=== PATIENT | male | born 2000 | race Caucasian/White ===

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

== ENCOUNTER 2020-04-08 18:51 | Emergency (ER) | payer BC, OTHER ==
[~2020-04-08] VITALS: Ht 182.9 cm; Wt 99.1 kg
[2020-04-08 19:28] VITALS: BP 128/66
[2020-04-08 20:29] LABS: BASOPHILS % (AUTO) 0.5 % (0-1); EOSINOPHILS % (AUTO) 0.5 % (0-6); HEMATOCRIT 45.2 % (42.0-52.0); HEMOGLOBIN 15.4 g/dl (14.0-17.9); LYMPHOCYTES # (AUTO) 2.9 X10'3 (1.1-4.8); MEAN CORPUSCULAR HGB CONC 34.1 g/dL (33.0-36.5); MEAN CORPUSCULAR VOLUME 85.1 FL (78-98); MEAN PLATELET VOLUME 7.6 FL (7.4-10.4); MONOCYTES # (AUTO) 0.4 X10'3 (0-0.9); MONOCYTES % (AUTO) 4.6 % (2-12); NEUTROPHILS # (AUTO) 5.1 X10'3 (1.8-7.7); NEUTROPHILS % (AUTO) 60.4 % (42-75); PLATELET COUNT 255 X10'3 (140-440); RED BLOOD COUNT 5.31 X10'6 (4.70-6.10); RED CELL DISTRIBUTION WIDTH 13.1 % (11.5-14.5); WHITE BLOOD COUNT 8.5 X10'3 (4.5-11.0)
[2020-04-08 20:44] LABS: ALANINE AMINOTRANSFERASE 50 U/L (12-78); ALBUMIN 4.4 G/DL (3.4-5.0); ALBUMIN/GLOBULIN RATIO 1.2 (1.1-1.5); ALKALINE PHOSPHATASE 140 IU/L (20-180); AMYLASE 43 U/L (25-115); ANION GAP 9 (8-16); ASPARTATE AMINO TRANSFERASE 46 U/L (10-37); BILIRUBIN,TOTAL 0.6 MG/DL (0.1-1.0); BLOOD UREA NITROGEN 24 MG/DL (7-18); BUN/CREATININE RATIO 22.9 (5.4-32.0); CALCIUM 9.4 MG/DL (8.5-10.1); CHLORIDE 103 MMOL/L (99-107); CREATININE 1.05 MG/DL (0.60-1.10); GLUCOSE 91 MG/DL (70-104); LIPASE 54 U/L (73-393); POTASSIUM 3.8 MMOL/L (3.5-5.1); SODIUM 138 MMOL/L (135-145); TOTAL CARBON DIOXIDE 25.7 MMOL/L (24-32); eGFR > 90 ML/MIN
== END 2020-04-08 21:19 | disposition home or self-care (01) ==
LOC: ER 18:52
DX: R04.0 Epistaxis (principal); R10.30 Lower abdominal pain, unspecified; R42 Dizziness and giddiness
CPT/HCPCS: 36415; 80053; 82150; 83690; 85025; 99283

== ENCOUNTER 2020-07-08 08:34 | Outpatient (CLI) | payer BC | END 2020-07-08 23:59 | disposition home or self-care (01) | LOC: RAD 08:34 | PROVIDERS: ATTEND Family Medicine | DX: N50.811 Right testicular pain (principal); R06.02 Shortness of breath | CPT/HCPCS: 71046; 76870; 93976 ==

== ENCOUNTER 2020-11-11 13:45 | Emergency (ER) | payer BC ==
[~2020-11-11] VITALS: Ht 180.3 cm; Wt 93.2 kg
[2020-11-11 15:15] VITALS: BP 120/64
[2020-11-11] MEDS ORDERED: BENZ-16 PO (15:43)
[2020-11-11] MEDS ORDERED: ALBU8HFA PO (15:43)
== END 2020-11-11 15:54 | disposition home or self-care (01) ==
LOC: ER 13:45
DX: B34.9 Viral infection, unspecified (principal); Z20.822 Contact with and (suspected) exposure to COVID-19; R00.2 Palpitations; R05 Cough; R50.9 Fever, unspecified; Z79.899 Other long term (current) drug therapy
CPT/HCPCS: 36415; 71045; 93005; 99285; U0003; U0005

== ENCOUNTER 2020-11-25 08:56 | Outpatient (CLI) | payer BC ==
[~2020-11-25 08:56] MED LIST: ALBU8HFA PO
== END 2020-11-25 23:59 | disposition home or self-care (01) ==
LOC: CARD DIAG 08:56
PROVIDERS: ATTEND Family Medicine
DX: I49.8 Other specified cardiac arrhythmias (principal)
CPT/HCPCS: 93306

== ENCOUNTER 2021-02-22 14:45 | Emergency (ER) | payer BC ==
[~2021-02-22] VITALS: Ht 180.3 cm; Wt 92.0 kg
[2021-02-22] MEDS ORDERED: TETanus/Pertussis (Acell)/Diphther VAC/PF (Tdap-Adult) 0.5ml syringe IMVAC ONE (16:05)
[2021-02-22 18:10] VITALS: BP 113/57
== END 2021-02-22 18:12 | disposition home or self-care (01) ==
LOC: ER 14:46
DX: S06.0X0A Concussion without loss of consciousness, initial encounter (principal); V00.311A Fall from snowboard, initial encounter; Y93.23 Activity, snow (alpine) (downhill) skiing, snowboarding, sledding, tobogganing and snow tubing; Y92.89 Other specified places as the place of occurrence of the external cause; Y99.9 Unspecified external cause status
CPT/HCPCS: 70450; 90471; 90715; 99284

== ENCOUNTER 2021-04-24 07:50 | Outpatient (CLI) | payer BC ==
[2021-04-24 08:30] LABS: CLARITY,URINE CLEAR (Clear); COLOR,URINE YELLOW (Yellow); GLUCOSE, URINE NEGATIVE (Neg); KETONES,URINE NEGATIVE (Neg); LEUKOCYTE ESTERASE ,URINE NEGATIVE (Neg); NITRITES, URINE NEGATIVE (Neg); OCCULT BLOOD,URINE NEGATIVE (Neg); PROTEIN,URINE NEGATIVE (Neg); UA COLLECTION TYPE CLN CATCH MIDSTREAM; UROBILINOGEN,URINE 0.2 E.U/dL (0.2-1.0)
[2021-04-24 08:31] LABS: BASOPHILS % (AUTO) 0.4 % (0-1); EOSINOPHILS # (AUTO) 0.1 X10'3 (0-0.9); HEMATOCRIT 46.2 % (42.0-52.0); HEMOGLOBIN 15.7 g/dl (14.0-17.9); LYMPHOCYTES # (AUTO) 2.9 X10'3 (1.1-4.8); LYMPHOCYTES % (AUTO) 43.3 % (21-51); MEAN CORPUSCULAR HEMOGLOBIN 29.7 PG (27.0-31.0); MEAN CORPUSCULAR HGB CONC 34.1 g/dL (33.0-36.5); MEAN CORPUSCULAR VOLUME 87.2 FL (78-98); MONOCYTES # (AUTO) 0.5 X10'3 (0-0.9); MONOCYTES % (AUTO) 7.1 % (2-12); NEUTROPHILS # (AUTO) 3.1 X10'3 (1.8-7.7); NEUTROPHILS % (AUTO) 47.2 % (42-75); PLATELET COUNT 260 X10'3 (140-440); WHITE BLOOD COUNT 6.6 X10'3 (4.5-11.0)
[2021-04-24 10:18] LABS: ALANINE AMINOTRANSFERASE 42 U/L (12-78); ALBUMIN 4.3 G/DL (3.4-5.0); ALBUMIN/GLOBULIN RATIO 1.2 (1.1-1.5); ALKALINE PHOSPHATASE 108 IU/L (20-180); ANION GAP 11 (8-16); ASPARTATE AMINO TRANSFERASE 28 U/L (10-37); BILIRUBIN,TOTAL 0.7 MG/DL (0.1-1.0); BLOOD UREA NITROGEN 22 MG/DL (7-18); BUN/CREATININE RATIO 19.5 (5.4-32.0); CALCIUM 9.1 MG/DL (8.5-10.1); CHLORIDE 104 MMOL/L (99-107); CHOL/HDL RATIO 2.1 (0.00-4.99); CHOLESTEROL 143 MG/DL (0-200); CREATININE 1.13 MG/DL (0.60-1.10); GLUCOSE 91 MG/DL (70-104); HDL CHOLESTEROL 67 MG/DL (35-60); LDL CHOLESTEROL 65 MG/DL (50-100); POTASSIUM 3.9 MMOL/L (3.5-5.1); SODIUM 143 MMOL/L (135-145); TOTAL CARBON DIOXIDE 28.5 MMOL/L (24-32); TOTAL PROTEIN 7.9 G/DL (6.4-8.2); TRIGLYCERIDES 48 MG/DL (20-135); eGFR 83 ML/MIN
[2021-04-29 12:15] LABS: TESTOSTERONE, FREE, DIRECT 10.2 pg/mL (9.3-26.5)
== END 2021-04-24 23:59 | disposition home or self-care (01) ==
LOC: LAB 07:50
PROVIDERS: ATTEND Family Medicine
DX: D64.9 Anemia, unspecified (principal); R53.83 Other fatigue; E07.9 Disorder of thyroid, unspecified; E78.00 Pure hypercholesterolemia, unspecified; R79.89 Other specified abnormal findings of blood chemistry; N30.90 Cystitis, unspecified without hematuria
CPT/HCPCS: 36415; 80053; 80061; 81003; 84402; 84403; 84439; 84443; 85025

== ENCOUNTER 2021-12-08 13:48 | Emergency (ER) | payer BC ==
[~2021-12-08] VITALS: Ht 182.9 cm; Wt 90.9 kg
[2021-12-08 13:56] VITALS: BP 132/63
[2021-12-08 14:26] LABS: BASOPHILS % (AUTO) 0.4 % (0-1); EOSINOPHILS # (AUTO) 0.1 X10'3 (0-0.9); EOSINOPHILS % (AUTO) 1.4 % (0-6); HEMATOCRIT 44.6 % (42.0-52.0); HEMOGLOBIN 15.6 g/dl (14.0-17.9); LYMPHOCYTES # (AUTO) 2.5 X10'3 (1.1-4.8); LYMPHOCYTES % (AUTO) 36.9 % (21-51); MEAN CORPUSCULAR HEMOGLOBIN 29.4 PG (27.0-31.0); MEAN CORPUSCULAR VOLUME 84.1 FL (78-98); MEAN PLATELET VOLUME 7.4 FL (7.4-10.4); MONOCYTES # (AUTO) 0.3 X10'3 (0-0.9); MONOCYTES % (AUTO) 5.1 % (2-12); NEUTROPHILS # (AUTO) 3.9 X10'3 (1.8-7.7); NEUTROPHILS % (AUTO) 56.2 % (42-75); PLATELET COUNT 238 X10'3 (140-440); RED CELL DISTRIBUTION WIDTH 12.8 % (11.5-14.5); WHITE BLOOD COUNT 6.9 X10'3 (4.5-11.0)
[2021-12-08 14:47] LABS: ALANINE AMINOTRANSFERASE 39 U/L (12-78); ALBUMIN 4.4 G/DL (3.4-5.0); ALBUMIN/GLOBULIN RATIO 1.1 (1.1-1.5); ALKALINE PHOSPHATASE 92 IU/L (46-116); ANION GAP 10 (8-16); ASPARTATE AMINO TRANSFERASE 33 U/L (10-37); BILIRUBIN,TOTAL 0.7 MG/DL (0.1-1.0); BLOOD UREA NITROGEN 24 MG/DL (7-18); BUN/CREATININE RATIO 22.4 (5.4-32.0); CALCIUM 9.4 MG/DL (8.5-10.1); CHLORIDE 101 MMOL/L (99-107); CREATININE 1.07 MG/DL (0.60-1.10); GLUCOSE 116 MG/DL (70-104); POTASSIUM 3.4 MMOL/L (3.5-5.1); SODIUM 138 MMOL/L (135-145); TOTAL CARBON DIOXIDE 27.3 MMOL/L (24-32); TOTAL PROTEIN 8.4 G/DL (6.4-8.2); eGFR 87 ML/MIN
== END 2021-12-08 18:50 | disposition home or self-care (01) ==
LOC: ER 13:48
DX: R00.2 Palpitations (principal); R07.89 Other chest pain; R42 Dizziness and giddiness
CPT/HCPCS: 36415; 80053; 83880; 84484; 85025; 93005; 99284

== ENCOUNTER 2022-05-20 15:44 | Emergency (ER) | payer BC ==
[~2022-05-20] VITALS: Ht 180.3 cm; Wt 97.0 kg
[2022-05-20 16:09] LABS: CLARITY,URINE CLEAR (Clear); COLOR,URINE STRAW (Yellow); GLUCOSE, URINE NEGATIVE (Neg); KETONES,URINE NEGATIVE (Neg); LEUKOCYTE ESTERASE ,URINE NEGATIVE (Neg); NITRITES, URINE NEGATIVE (Neg); OCCULT BLOOD,URINE NEGATIVE (Neg); PROTEIN,URINE NEGATIVE (Neg); UROBILINOGEN,URINE 0.2 E.U/dL (0.2-1.0)
[2022-05-20 16:15] LABS: UA COLLECTION TYPE CLN CATCH MIDSTREAM
[2022-05-20 16:32] LABS: BASOPHILS % (AUTO) 0.3 % (0-1); EOSINOPHILS # (AUTO) 0.1 X10'3 (0-0.9); EOSINOPHILS % (AUTO) 0.9 % (0-6); HEMATOCRIT 46.8 % (42.0-52.0); HEMOGLOBIN 15.8 g/dl (14.0-17.9); LYMPHOCYTES # (AUTO) 2.9 X10'3 (1.1-4.8); LYMPHOCYTES % (AUTO) 43.8 % (21-51); MEAN CORPUSCULAR HEMOGLOBIN 29.6 PG (27.0-31.0); MEAN CORPUSCULAR HGB CONC 33.8 g/dL (33.0-36.5); MEAN CORPUSCULAR VOLUME 87.5 FL (78-98); MEAN PLATELET VOLUME 7.3 FL (7.4-10.4); MONOCYTES # (AUTO) 0.4 X10'3 (0-0.9); MONOCYTES % (AUTO) 6.1 % (2-12); NEUTROPHILS # (AUTO) 3.2 X10'3 (1.8-7.7); NEUTROPHILS % (AUTO) 48.9 % (42-75); PLATELET COUNT 245 X10'3 (140-440); RED BLOOD COUNT 5.34 X10'6 (4.70-6.10); RED CELL DISTRIBUTION WIDTH 12.9 % (11.5-14.5); WHITE BLOOD COUNT 6.5 X10'3 (4.5-11.0)
[2022-05-20 16:45] LABS: ALANINE AMINOTRANSFERASE 37 U/L (12-78); ALBUMIN 4.1 G/DL (3.4-5.0); ALBUMIN/GLOBULIN RATIO 1.1 (1.1-1.5); ALKALINE PHOSPHATASE 89 IU/L (46-116); ANION GAP 10 (8-16); ASPARTATE AMINO TRANSFERASE 36 U/L (10-37); BILIRUBIN,TOTAL 0.6 MG/DL (0.1-1.0); BLOOD UREA NITROGEN 25 MG/DL (7-18); BUN/CREATININE RATIO 20.8 (10.0-20.0); CALCIUM 9.1 MG/DL (8.5-10.1); CHLORIDE 102 MMOL/L (99-107); GLUCOSE 101 MG/DL (70-104); LIPASE 52 U/L (73-393); POTASSIUM 3.7 MMOL/L (3.5-5.1); SODIUM 139 MMOL/L (135-145); TOTAL CARBON DIOXIDE 27.5 MMOL/L (24-32); TOTAL PROTEIN 7.7 G/DL (6.4-8.2); eGFR 76 ML/MIN
[2022-05-20 16:50] VITALS: BP 137/77
[2022-05-20] MEDS ORDERED: LIDOcaine Viscous 15ml cup MM ONE (17:25)
[2022-05-20] MEDS ORDERED: pantoprazole 40mg Tablet.DR PO ONE (17:25)
[2022-05-20] MEDS ORDERED: ondansetron 4mg rapidly disintigrating tab PO ONE (17:25)
[2022-05-20] MEDS ORDERED: ibuprofen tablet 400 MG TABLET PO ONE (17:25)
[2022-05-20] MEDS ORDERED: normal saline 1000ml 1,000 ML IV ONE (17:25)
[2022-05-20] MEDS ORDERED: FAMO-128 PO (19:02)
== END 2022-05-20 19:31 | disposition home or self-care (01) ==
LOC: ER 15:44
DX: K29.70 Gastritis, unspecified, without bleeding (principal); Z79.899 Other long term (current) drug therapy
CPT/HCPCS: 36415; 80053; 81003; 83690; 85025; 85610; 86885; 86900; 86901; 96360; 99284; J7030

== ENCOUNTER 2022-09-08 08:24 | Emergency (ER) | payer BC, OTHER ==
[~2022-09-08] VITALS: Ht 182.9 cm; Wt 88.2 kg
[~2022-09-08 08:24] MED LIST changes: -ALBU8HFA PO; +FAMO-128 PO
[2022-09-08 08:31] VITALS: BP 111/60; PULSE 99; RESP 16; TEMP 98.1; O2SAT 99
[2022-09-08] MEDS ORDERED: IBUP-864 PO (09:23)
[2022-09-08] MEDS ORDERED: LIDO700A47 TOP (09:23)
[2022-09-08] MEDS ORDERED: CYCL-1 PO (09:23)
== END 2022-09-08 09:34 | disposition home or self-care (01) ==
LOC: ER 08:24
DX: R07.89 Other chest pain (principal); V87.7XXA Person injured in collision between other specified motor vehicles (traffic), initial encounter; Y93.89 Activity, other specified; Y92.488 Other paved roadways as the place of occurrence of the external cause; Y99.8 Other external cause status
CPT/HCPCS: 99283

== ENCOUNTER 2023-01-26 11:22 | Day surgery (SDC) | payer BC, OTHER ==
[~2023-01-26] VITALS: Ht 182.9 cm; Wt 91.8 kg
[~2023-01-26 11:22] MED LIST changes: +CYCL-1 PO; +IBUP-864 PO; +LIDO700A47 TOP
[2023-01-26] MEDS ORDERED: IBUP-1986 PO (11:50)
[2023-01-26] MEDS ORDERED: CYCL-1 PO (11:52)
[2023-01-26 11:54] VITALS: BP 145/69; PULSE 90; RESP 19
[2023-01-26] MEDS ORDERED: fentaNYL/PF 50MCG/1 ML 2ML syringe ONE (12:36)
[2023-01-26] MEDS ORDERED: LIDOcaine Viscous 15ml cup ONE (12:36)
[2023-01-26] MEDS ORDERED: MIDAZolam 1 MG/ML 5ML VIAL ONE (12:36)
[2023-01-26 13:03] VITALS: BP 116/73; PULSE 84; RESP 20; O2SAT 100
[2023-01-26 13:11] VITALS: BP 114/63; PULSE 69; RESP 15; O2SAT 96
[2023-01-26 13:21] VITALS: BP 109/56; PULSE 68; RESP 16; O2SAT 96
[2023-01-26 13:31] VITALS: BP 112/56; PULSE 78; RESP 17; O2SAT 98
== END 2023-01-26 13:40 | disposition home or self-care (01) ==
LOC: GI LAB 11:22
PROVIDERS: ATTEND Specialist
DX: R10.13 Epigastric pain (principal); R11.2 Nausea with vomiting, unspecified; K92.0 Hematemesis; K29.50 Unspecified chronic gastritis without bleeding; Z87.891 Personal history of nicotine dependence; F12.91 Cannabis use, unspecified, in remission
CPT/HCPCS: 43239; 99152; J2250; J3010; J7030; Z7512; A4620

== ENCOUNTER 2023-10-27 12:08 | Outpatient (CLI) | payer BC ==
[~2023-10-27 12:08] MED LIST changes: -FAMO-128 PO; +IBUP-1986 PO; -LIDO700A47 TOP
== END 2023-10-27 23:59 | disposition home or self-care (01) ==
LOC: MRI02 12:08
PROVIDERS: ATTEND Nurse Practitioner Family
DX: M51.37 Other intervertebral disc degeneration, lumbosacral region (principal); M48.07 Spinal stenosis, lumbosacral region; R29.898 Other symptoms and signs involving the musculoskeletal system
CPT/HCPCS: 72148

== ENCOUNTER 2023-11-03 08:07 | Outpatient (CLI) | payer BC ==
[2023-11-03 08:38] LABS: BASOPHILS % (AUTO) 0.6 % (0-1); EOSINOPHILS # (AUTO) 0.2 X10'3 (0-0.9); EOSINOPHILS % (AUTO) 2.4 % (0-6); HEMATOCRIT 45.1 % (42.0-52.0); HEMOGLOBIN 15.9 g/dl (14.0-17.9); LYMPHOCYTES # (AUTO) 2.6 X10'3 (1.1-4.8); LYMPHOCYTES % (AUTO) 40.9 % (21-51); MEAN CORPUSCULAR HEMOGLOBIN 30.3 PG (27.0-31.0); MEAN CORPUSCULAR HGB CONC 35.1 g/dL (33.0-36.5); MEAN CORPUSCULAR VOLUME 86.2 FL (78-98); MEAN PLATELET VOLUME 7.4 FL (7.4-10.4); MONOCYTES # (AUTO) 0.4 X10'3 (0-0.9); MONOCYTES % (AUTO) 6.6 % (2-12); NEUTROPHILS # (AUTO) 3.1 X10'3 (1.8-7.7); NEUTROPHILS % (AUTO) 49.5 % (42-75); PLATELET COUNT 232 X10'3 (140-440); RED BLOOD COUNT 5.24 X10'6 (4.70-6.10); RED CELL DISTRIBUTION WIDTH 13.3 % (11.5-14.5); WHITE BLOOD COUNT 6.3 X10'3 (4.5-11.0)
[2023-11-03 08:45] LABS: BILIRUBIN,URINE NEGATIVE (Neg); CLARITY,URINE CLEAR (Clear); COLOR,URINE YELLOW (Yellow); GLUCOSE, URINE NEGATIVE (Neg); KETONES,URINE NEGATIVE (Neg); LEUKOCYTE ESTERASE ,URINE NEGATIVE (Neg); NITRITES, URINE NEGATIVE (Neg); OCCULT BLOOD,URINE NEGATIVE (Neg); PROTEIN,URINE NEGATIVE (Neg); UROBILINOGEN,URINE 0.2 E.U/dL (0.2-1.0)
[2023-11-03 08:46] LABS: UA COLLECTION TYPE CLN CATCH MIDSTREAM
[2023-11-03 08:59] LABS: ALBUMIN 4.3 G/DL (3.4-5.0); ALBUMIN/GLOBULIN RATIO 1.2 (1.1-1.5); ALKALINE PHOSPHATASE 77 IU/L (46-116); ANION GAP 6 (8-16); ASPARTATE AMINO TRANSFERASE 20 U/L (10-37); BILIRUBIN,TOTAL 0.7 MG/DL (0.1-1.0); CHLORIDE 106 MMOL/L (99-107); CREATININE 1.18 MG/DL (0.60-1.10); GLUCOSE 88 MG/DL (70-104); SODIUM 140 MMOL/L (135-145); TOTAL CARBON DIOXIDE 27.8 MMOL/L (24-32); TOTAL PROTEIN 7.8 G/DL (6.4-8.2); eGFR 76 ML/MIN
[2023-11-03 09:06] LABS: ALANINE AMINOTRANSFERASE 30 U/L (12-78); BLOOD UREA NITROGEN 24 MG/DL (7-18); BUN/CREATININE RATIO 20.3 (10.0-20.0); CHOL/HDL RATIO 2.4 (0.00-4.99); CHOLESTEROL 156 MG/DL (0-200); HDL CHOLESTEROL 66 MG/DL (35-60); LDL CHOLESTEROL 82 MG/DL (50-100); THYROID STIMULATING HORMONE 2.39 ulU/ml (0.34-4.50); TRIGLYCERIDES 39 MG/DL (20-135)
[2023-11-04 09:14] LABS: TESTOSTERONE, SERUM 597 ng/dL (264-916); THYROXINE (T4) 7.8 ug/dL (4.5-12.0)
[2023-11-04 11:15] LABS: FOLATE SERUM(FOLIC) 11.9 ng/mL (>3.0)
== END 2023-11-03 23:59 | disposition home or self-care (01) ==
LOC: LAB 08:07
PROVIDERS: ATTEND Nurse Practitioner Family
DX: Z00.01 Encounter for general adult medical examination with abnormal findings (principal); R53.83 Other fatigue; Z13.29 Encounter for screening for other suspected endocrine disorder; E78.00 Pure hypercholesterolemia, unspecified; F52.0 Hypoactive sexual desire disorder
CPT/HCPCS: 36415; 80053; 80061; 81003; 82607; 82746; 84402; 84403; 84436; 84443; 85025

== ENCOUNTER 2024-03-29 18:20 | Emergency (ER) | payer BC ==
[~2024-03-29] VITALS: Ht 182.9 cm; Wt 102.1 kg
[2024-03-29 18:40] VITALS: BP 126/72; PULSE 82; O2SAT 98
[2024-03-29] MEDS ORDERED: CYCL-1 PO (21:29)
[2024-03-29] MEDS ORDERED: LIDO700A32 TOP (21:29)
[2024-03-29 21:35] VITALS: RESP 15
[2024-03-29] MEDS: ketorolac trometh 15mg/ml vial 15 MG/ML ML IM ONE (21:35)
[2024-03-29] MEDS: LIDOcaine 5% patch TP ONE (21:35)
[2024-03-29 21:37] VITALS: TEMP 98.9
== END 2024-03-29 21:41 | disposition home or self-care (01) ==
LOC: ER 18:21
DX: G89.29 Other chronic pain (principal); M54.59 Other low back pain; Z79.1 Long term (current) use of non-steroidal anti-inflammatories (NSAID); Z79.899 Other long term (current) drug therapy; V43.52XA Car driver injured in collision with other type car in traffic accident, initial encounter; Y93.89 Activity, other specified; Y92.410 Unspecified street and highway as the place of occurrence of the external cause; Y99.8 Other external cause status
CPT/HCPCS: 72100; 96372; 99283; J1885; J7030